=== PATIENT | male | born 1945 | race Two or more races ===

== ENCOUNTER 2023-01-27 13:32 | Emergency (ER) | payer OTHER, MEDICAID ==
[~2023-01-27] VITALS: Ht 167.6 cm; Wt 59.0 kg
[2023-01-27 13:35] VITALS: BP 0/0
== END 2023-01-27 13:37 ==
LOC: ER 13:32 → EDBD 13:32 → ER 13:37
DX: I46.9 Cardiac arrest, cause unspecified (principal); I13.0 Hypertensive heart and chronic kidney disease with heart failure and stage 1 through stage 4 chronic kidney disease, or unspecified chronic kidney disease; N18.9 Chronic kidney disease, unspecified; I50.9 Heart failure, unspecified
CPT/HCPCS: 92950